=== PATIENT | female | born 1995 | race Caucasian/White ===

== ENCOUNTER 2018-01-11 06:27 | Inpatient (IN) | payer OTHER ==
[2018-01-11] MEDS ORDERED: ACETAMINOPHEN/CODEINE #3 TAB PO (07:30)
[2018-01-11] MEDS ORDERED: BUTORPHANOL 1 MG INJ IV (07:30)
[2018-01-11] MEDS ORDERED: BUTORPHANOL 2 MG INJ IV (07:30)
[2018-01-11] MEDS ORDERED: MISOPROSTOL 200 MCG TAB PR (07:30)
[2018-01-11] MEDS ORDERED: METHYLERGONOVINE 0.2 MG INJ IM (07:30)
[2018-01-11] MEDS ORDERED: CARBOPROST 250 MCG INJ IM (07:30)
[2018-01-11] MEDS ORDERED: LACTATED RINGER'S 1,000 ML IV (07:36)
[2018-01-11] MEDS: LACTATED RINGER'S 1,000 ML IV* ×3 (08:02→12:32)
[2018-01-11 08:18] LABS: ADD MAN DIFF? NO
[2018-01-11 08:26] LABS: BASOPHIL # 0.1 10^3/ul (0.0-0.1); BASOPHILS % 0.4 % (0.0-2.0); EOSINOPHILS % 0.2 % (0.0-7.0); HEMATOCRIT 36.4 % (37.0-47.0); HEMOGLOBIN 12.1 g/dl (12.0-16.0); LYMPHOCYTES # 2.2 10^3/ul (0.8-2.9); LYMPHOCYTES % 16.5 % (15.0-51.0); MEAN CORPUSCULAR HEMOGLOBIN 28.9 pg (29.0-33.0); MEAN CORPUSCULAR HGB CONC 33.2 g/dl (32.0-37.0); MEAN CORPUSCULAR VOLUME 86.9 fl (82.0-101.0); MEAN PLATELET VOLUME 10.8 fl (7.4-10.4); MONOCYTE # 0.9 10^3/ul (0.3-0.9); MONOCYTES % 6.9 % (0.0-11.0); NEUTROPHIL # 9.9 10^3/ul (1.6-7.5); NEUTROPHILS % 74.3 % (39.0-77.0); PLATELET COUNT 171 10^3/UL (140-415); RED BLOOD COUNT 4.19 10^6/ul (4.20-5.40); RED CELL DISTRIBUTION WIDTH 13.2 % (11.5-14.5)
[2018-01-11 08:26] LABS: WHITE BLOOD COUNT 13.4 10^3/ul (4.8-10.8)
[2018-01-11 08:38] LABS: INR 0.82; PROTIME 11.4 Sec (11.9-14.9); PT RATIO 0.9
[2018-01-11 08:39] LABS: PARTIAL THROMBOPLASTIN TIME 24.2 Sec (25.0-35.0)
[2018-01-11] MEDS: AMPICILLIN 2 GM/NS (PMX) 100 ML IV (08:54)
[2018-01-11 09:09] LABS: HEPATITIS B SURFACE ANTIGEN NEGATIVE (NEGATIVE)
[2018-01-11] MEDS ORDERED: FENTAnyl 2MCG/ML-ROPIV 0.2% 100 ML (10:06)
[2018-01-11] MEDS ORDERED: NALOXONE (0.4 MG/ML) INJ IV (10:30)
[2018-01-11] MEDS ORDERED: FENTAnyl 2MCG/ML-ROPIV 0.2% 100 ML BAG EPI (10:30)
[2018-01-11] MEDS ORDERED: AMPICILLIN 1 GM/NS (PMX) 50 ML IV (11:30)
[2018-01-11] MEDS ORDERED: OXYTOCIN 30 UNITS/LR 500 ML IV (13:30)
[2018-01-11] MEDS: OXYTOCIN 30 UNITS/LR 500 ML IV ×4 (13:37→22:35)
[2018-01-11 15:13] LABS: RAPID PLASMA REAGIN NONREACTIVE (NR)
[2018-01-11] MEDS: LIDOCAINE 1% (MPF) 30 ML INJ INJ (18:09)
[2018-01-11] MEDS: IBUPROFEN 600 MG TAB PO (20:11)
[2018-01-11] MEDS ORDERED: ACETAMINOPHEN 325 MG TAB PO (20:30)
[2018-01-11] MEDS ORDERED: DIBUCAINE 1% 30 GM OINT PR (20:30)
[2018-01-11] MEDS ORDERED: OXYCODONE/ASPIRIN (4.88/325) TAB PO ×2 (20:30)
[2018-01-11] MEDS ORDERED: HYDROCODONE/APAP (5/325) TAB PO ×2 (20:30)
[2018-01-11] MEDS: SENNA/DOCUSATE NA (8.6MG/50MG) TAB PO (22:35)
[2018-01-12] MEDS: WITCH HAZEL/GLYCERIN PAD PR (02:08)
[2018-01-12] MEDS: LANOLIN 7 GM TUBE TOP (02:08)
[2018-01-12] MEDS: BENZOCAINE 20% 56 ML SPRAY TOP (02:08)
[2018-01-12] MEDS: IBUPROFEN 600 MG TAB PO ×4 (05:40→18:00)
[2018-01-12 09:02] LABS: ADD MAN DIFF? NO
[2018-01-12 09:12] LABS: BASOPHILS % 0.2 % (0.0-2.0); EOSINOPHILS % 0.1 % (0.0-7.0); HEMOGLOBIN 10.1 g/dl (12.0-16.0); LYMPHOCYTES # 2.2 10^3/ul (0.8-2.9); LYMPHOCYTES % 14.8 % (15.0-51.0); MEAN CORPUSCULAR HEMOGLOBIN 28.4 pg (29.0-33.0); MEAN CORPUSCULAR HGB CONC 32.6 g/dl (32.0-37.0); MEAN CORPUSCULAR VOLUME 87.1 fl (82.0-101.0); MEAN PLATELET VOLUME 10.9 fl (7.4-10.4); MONOCYTE # 1.1 10^3/ul (0.3-0.9); MONOCYTES % 7.2 % (0.0-11.0); NEUTROPHIL # 11.2 10^3/ul (1.6-7.5); NEUTROPHILS % 76.8 % (39.0-77.0); PLATELET COUNT 150 10^3/UL (140-415); RED BLOOD COUNT 3.56 10^6/ul (4.20-5.40); RED CELL DISTRIBUTION WIDTH 13.2 % (11.5-14.5)
[2018-01-12 09:12] LABS: WHITE BLOOD COUNT 14.6 10^3/ul (4.8-10.8)
[2018-01-12] MEDS: SENNA/DOCUSATE NA (8.6MG/50MG) TAB PO (09:28)
[2018-01-12] MEDS ORDERED: LEVOTHYROXINE 100 MCG TAB PO (10:00)
[2018-01-13] MEDS: IBUPROFEN 600 MG TAB PO ×3 (00:33→12:34)
[2018-01-13] MEDS: SENNA/DOCUSATE NA (8.6MG/50MG) TAB PO ×2 (00:33→08:49)
[2018-01-13] MEDS: MEASLES,MUMPS,RUBELLA VACCINE INJ SC* (09:00)
== END 2018-01-13 16:16 | disposition home or self-care (01) | DRG 775 ==
LOC: OBT 06:27 → L-D 06:27 → OBT 07:32 → L-D 07:32 → PP1 21:34
PROVIDERS: Obstetrics & Gynecology
PROC: 10E0XZZ Delivery of Products of Conception, External Approach (ICD-10-PCS; principal; 2018-01-11)
PROC: 0HQ9XZZ Repair Perineum Skin, External Approach (ICD-10-PCS; 2018-01-11)
DX: O48.0 Post-term pregnancy (principal); Z3A.40 40 weeks gestation of pregnancy; Z37.0 Single live birth; O70.0 First degree perineal laceration during delivery; O99.284 Endocrine, nutritional and metabolic diseases complicating childbirth; E03.9 Hypothyroidism, unspecified
CPT/HCPCS: 62319; 84443; 85025; 85610; 85730; 86592; 86850; 86900; 86901; 87340; 99464

== ENCOUNTER 2018-02-24 10:33 | Day surgery (SDC) | payer OTHER ==
[2018-02-24] MEDS ORDERED: IPRATROPIUM (NEB) 0.5 MG/2.5 ML AMP HHN (12:30)
[2018-02-24] MEDS ORDERED: EPHEDrine SULFATE 50 MG/5 ML SYG IV (12:30)
[2018-02-24] MEDS ORDERED: LABETALOL HCL 20MG INJ IV (12:30)
[2018-02-24] MEDS ORDERED: TRIMETHOBENZAMIDE 100 MG/ML VIAL IM (12:30)
[2018-02-24] MEDS ORDERED: FENTAnyl 50 MCG/ML VIAL IV ×3 (12:30)
[2018-02-24] MEDS ORDERED: HYDROmorphONE 1 MG/5 ML IV SYRINGE IV ×3 (12:30)
[2018-02-24] MEDS ORDERED: ALBUTEROL 0.083% (NEB) 2.5 MG/3 ML AMP HHN (12:30)
[2018-02-24] MEDS ORDERED: MIDAZOLAM 1 MG/ML 2 ML INJ IV (12:30)
[2018-02-24] MEDS ORDERED: DIPHENHYDRAMINE 50 MG INJ IV (12:30)
[2018-02-24] MEDS ORDERED: hydrALAzine 20 MG INJ IV (12:30)
[2018-02-24] MEDS ORDERED: OXYCODONE/ACETAMINOPHEN (5/325) TAB PO ×2 (12:30)
[2018-02-24] MEDS ORDERED: ROCURONIUM 50 MG INJ (12:41)
[2018-02-24] MEDS ORDERED: CEFAZOLIN 1 GM INJ (12:41)
[2018-02-24] MEDS ORDERED: GLYCOPYRROLATE 0.4 MG INJ (12:41)
[2018-02-24] MEDS ORDERED: PROPOFOL 20 ML (12:41)
[2018-02-24] MEDS ORDERED: NEOSTIGMINE 3 MG/3 ML SYRINGE (12:41)
[2018-02-24] MEDS ORDERED: FENTAnyl 50 MCG/ML VIAL (12:43)
[2018-02-24] MEDS ORDERED: ONDANSETRON 4 MG INJ (12:43)
[2018-02-24] MEDS ORDERED: MIDAZOLAM 1 MG/ML 2 ML INJ (12:43)
[2018-02-24] MEDS ORDERED: DEXAMETHASONE 4 MG/ML 1 ML INJ (12:43)
[2018-02-24] MEDS ORDERED: KETOROLAC 30 MG INJ (12:59)
[2018-02-24] MEDS ORDERED: OXYTOCIN 10 UNIT INJ (13:01)
[2018-02-24] MEDS ORDERED: METOCLOPRAMIDE 10 MG INJ (13:08)
[2018-02-24] MEDS ORDERED: KETOROLAC 30 MG INJ IV (13:30)
[2018-02-24] MEDS: ONDANSETRON 4 MG INJ IV (13:31)
[2018-02-24] MEDS: MEPERIDINE 25 MG INJ IV (13:31)
[2018-02-24] MEDS ORDERED: METHYLERGONOVINE 0.2 MG INJ (13:56)
[2018-02-24] MEDS: IBUPROFEN 600 MG TAB PO (14:22)
== END 2018-02-24 15:02 | disposition home or self-care (01) ==
LOC: SDS 10:33
DX: N93.9 Abnormal uterine and vaginal bleeding, unspecified (principal)
CPT/HCPCS: 58120; 88305